=== PATIENT | male | born 1980 | race Caucasian/White ===

== ENCOUNTER 2018-07-02 18:59 | Emergency (ER) | payer BC, OTHER ==
[2018-07-02] MEDS: CEFAZOLIN 1 GM/50 ML (PMX) 50 ML IVPB (19:15)
[2018-07-02] MEDS: SOD CHLORIDE 0.9% 1,000 ML IV (19:15)
[2018-07-02] MEDS: ONDANSETRON 4 MG INJ IV (19:16)
[2018-07-02] MEDS: morphine 4 MG/ML VIAL IV ×2 (19:16→21:26)
[2018-07-02] MEDS: DIPHTH/TET/ACEL PERTUSS (ADULT) 0.5 ML VIAL IM* (19:16)
== END 2018-07-02 22:33 | disposition home or self-care (01) ==
LOC: E/R 18:59
DX: S51.811A Laceration without foreign body of right forearm, initial encounter (principal); W26.8XXA Contact with other sharp object(s), not elsewhere classified, initial encounter; Y92.9 Unspecified place or not applicable; Z23 Encounter for immunization; Z87.891 Personal history of nicotine dependence
CPT/HCPCS: 73090; 73090-RT; 90471; 90715; 96374; 96375; 96376; 99284-25

== ENCOUNTER 2018-07-14 09:53 | Emergency (ER) | payer BC | END 2018-07-14 11:40 | disposition home or self-care (01) | LOC: FTE 09:53 | DX: Z48.02 Encounter for removal of sutures (principal); F17.210 Nicotine dependence, cigarettes, uncomplicated | CPT/HCPCS: 99281; Z7502 ==

== ENCOUNTER 2018-10-27 11:46 | Emergency (ER) | payer BC ==
[2018-10-27] MEDS: HYDROmorphONE 0.5 MG/0.5 ML SYG IM (13:36)
[2018-10-27] MEDS: KETOROLAC 60 MG INJ IM (13:40)
== END 2018-10-27 15:58 | disposition home or self-care (01) ==
LOC: FTE 15:58
DX: M54.41 Lumbago with sciatica, right side (principal); M54.42 Lumbago with sciatica, left side; F17.210 Nicotine dependence, cigarettes, uncomplicated
CPT/HCPCS: 72131; 96372; 99285-25